=== PATIENT | female | born 2000 | race Caucasian/White ===

== ENCOUNTER 2024-05-11 14:53 | Outpatient (REF) | payer OTHER, SELFPAY ==
--- NOTE | ~2024-05-11 | MR_ITS ---
EXAMINATION: MR KNEE WITHOUT CONTRAST, LEFT CLINICAL INFORMATION: Instability COMPARISON: None available. TECHNIQUE: MRI of the knee without contrast was performed using routine sequences on a high-field scanner. FINDINGS: MENISCI: Medial Meniscus: Intact Lateral Meniscus: Intact LIGAMENTS: Cruciate: There is edema extending along the ACL with possible partial tearing involving the lateral aspect at the femoral attachment. The posterior cruciate ligament is intact. Collateral: Marked edema extending along the medial collateral ligament which is irregular, with partial tearing compatible with a proximal grade 2 sprain. The lateral collateral complex appears intact. EXTENSOR MECHANISM: Intact ARTICULAR CARTILAGE/BONE: Patellofemoral Compartment: Normal Medial Compartment: Normal Lateral Compartment: No articular cartilage defect. Mild bone bruise at the posterolateral aspect of the nonweightbearing femoral condyle. JOINT FLUID AND BURSAE: Trace joint effusion. MR/MR knee LT wo con IMPRESSION: 1. Grade 2 proximal MCL sprain. 2. Possible mild sprain/partial tearing of the ACL at the femoral attachment. 3. No meniscal tear. 4. Trace joint effusion. Electronically signed by: Maldonado Schofield MD 05/11/2024 04:03 PM EDT
== END 2024-05-11 14:54 | disposition home or self-care (01) ==
LOC: HO.MRI 14:53
PROVIDERS: PCP Family Medicine; Visit Provider Student in an Organized Health Care Education/Training Program
DX: M25.362 Other instability, left knee (principal); M25.462 Effusion, left knee
CPT/HCPCS: 73721